=== PATIENT | female | born 1990 | race Two or more races ===

== ENCOUNTER 2023-10-28 02:05 | Emergency (ER) | payer MEDICAID, OTHER ==
[~2023-10-28] VITALS: Ht 167.6 cm; Wt 76.8 kg
[2023-10-28 02:15] VITALS: BP 123/83; PULSE 120; RESP 17; O2SAT 97
== END 2023-10-28 03:22 | disposition left against medical advice (07) ==
LOC: ER 02:05
DX: G89.29 Other chronic pain (principal); M54.50 Low back pain, unspecified; Z53.21 Procedure and treatment not carried out due to patient leaving prior to being seen by health care provider